=== PATIENT | female | born 1990 | race Caucasian/White ===

== ENCOUNTER 2017-09-27 21:18 | Inpatient (IN) | payer OTHER ==
[~2017-09-27] VITALS: Ht 162.6 cm; Wt 54.4 kg
[~2017-09-27 21:18] MED LIST: ECHINACEA125 M1 PO; Procardia Xl 30MG TAB PO; VITAMIN C100 MG PO
[2017-09-27] MEDS ORDERED: PRENATAL TABLE1 EAC4 (22:29)
[2017-09-29] MEDS ORDERED: MACROBID 100 M100 MG PO (13:49)
== END 2017-09-29 15:43 | DRG 778 ==
LOC: OB/GYN 21:18 → LDR 21:18 → OB/GYN 09-28 09:53
DX: O60.03 Preterm labor without delivery, third trimester (principal); Z3A.31 31 weeks gestation of pregnancy; R82.71 Bacteriuria

== ENCOUNTER 2017-10-09 20:43 | Outpatient (CLI) | payer OTHER ==
[~2017-10-09 20:43] MED LIST changes: +MACROBID 100 M100 MG PO; +PRENATAL TABLE1 EAC4
== END 2017-10-10 10:49 | disposition home or self-care (01) ==
LOC: OBS/DEL 20:43
DX: O26.893 Other specified pregnancy related conditions, third trimester (principal); Z04.3 Encounter for examination and observation following other accident; W18.39XA Other fall on same level, initial encounter; Y93.89 Activity, other specified; Y92.89 Other specified places as the place of occurrence of the external cause; Y99.8 Other external cause status

== ENCOUNTER 2017-11-04 04:04 | Inpatient (IN) | payer OTHER ==
[~2017-11-04] VITALS: Ht 162.6 cm; Wt 57.6 kg
== END 2017-11-06 12:12 | disposition home or self-care (01) | DRG 775 ==
LOC: LDR 04:04 → OB/GYN 13:32
PROC: 0KQM0ZZ Repair Perineum Muscle, Open Approach (ICD-10-PCS; principal; 2017-11-04)
PROC: 10E0XZZ Delivery of Products of Conception, External Approach (ICD-10-PCS; 2017-11-04)
PROC: 4A1HXCZ Monitoring of Products of Conception, Cardiac Rate, External Approach (ICD-10-PCS; 2017-11-04)
PROC: 4A033R1 Measurement of Arterial Saturation, Peripheral, Percutaneous Approach (ICD-10-PCS; 2017-11-04)
DX: O70.1 Second degree perineal laceration during delivery (principal); Z37.0 Single live birth; Z3A.37 37 weeks gestation of pregnancy